=== PATIENT | male | born 1935 | race Caucasian/White ===

== ENCOUNTER 2016-06-25 10:54 | Observation (INO) | payer MEDICARE, BC, OTHER ==
[2016-06-25 11:13] VITALS: BMI 39.5
[2016-06-25] MEDS ORDERED: ALBUTEROL 0.083% 3 ML NEB NEB ONE (11:38)
--- NOTE | 2016-06-25 11:38 | EDPRACDOC ---
[id number] Present Illness Onset: last night HPI: PT WITH B/L KNEE PAIN (CHRONIC), LEG WEAKNESS. STATES UNABLE TO STAND TODAY. SMOKER OF CIGARS SINCE 14 YEARS OLD. LIVES ALONE. FALL LAST NIGHT 2099. ALSO LEFT ELBOW PAIN. <Jose Alejandro Norwood - Last Filed: 06/25/16 15:08> <Stephanie Ambriz Santi - Last Filed: 07/02/16 06:33> - General Information Chief Complaint: Fall Stated Complaint: FALL AT HOME Time Seen by Provider: 06/25/16 11:33 Home Medications: Home Medications No Home Medications 06/25/16 Allergies/Adverse Reactions: Allergies Allergy/AdvReac Type Severity Reaction Status Date / Time No Known Allergies Allergy Unverified 08/18/15 12:17 ED Past Medical History - History Reviewed Yes Nurses notes reviewed and agree except as marked - Patient Medical History Psychological History: Denies: Depression Systemic History: Denies: Cancer Surgical History: Reports: Appendectomy, Tonsillectomy/Adnoidectomy - Social Medical History Smoking Status: Light tobacco smoker (less than 5/day) <Jose Alejandro Norwood - Last Filed: 06/25/16 15:08> EDM Review of Systems - Review of Systems ROS Negative Except as Marked: Yes All systems reviewed and were negative except as marked Constitutional: No Symptoms Reported Eyes: No Symptoms Reported Nose: No Symptoms Reported Mouth: No Symptoms Reported Respiratory: Cough, Shortness of Breath Cardiovascular: No Symptoms Reported Gastrointestinal: No Symptoms Reported Genitourinary: No Symptoms Reported Neurological: No Symptoms Reported Musculoskeletal: Other (B/L KNEE PAIN, LEG WEAKNESS) <Jose Alejandro Norwood - Last Filed: 06/25/16 15:08> - Physical Exam Constitutional: Alert (Awake), No apparent distress Oriented to: Time, Person, Place Last recorded Vital Signs: Last Vital Signs Temp 99.0 F 06/25/16 11:05 Pulse 87 06/25/16 11:05 Resp 18 06/25/16 11:05 BP 149/92 06/25/16 11:05 Pulse Ox 96 06/25/16 11:05 Oxygen Pulse Oxygen Saturation 96 O2 Device Room Air Oxygen Flow Rate Fraction of Inspired Oxygen ( FIO2) - HEENT Head: Normal ( normocephalic) Eye Exam: Normal (PERRL, EOMI, Sclera white) Oropharynx: Normal (Pharynx:Moist without exudate,Gums-no swelling) Nose: No Symptoms Reported (septum midline) Neck: Normal (FROM, trachea at midline) - Respiratory/Cardiovascular Respiratory: Rhonchi (B/L) Cardiovascular: Normal (RRR without murmur, gallop or rub) - GI Auscultation: Normal (NABS) Palpation: Normal (Soft,No rebound or guarding, non distended) Tenderness: Non tender Tavares's Sign: Negative - Musculoskeletal Back: Normal (Non-Tender) Extremities: Normal (Normal tone, Pulses 2+ No cyanosis or edema, FROM) - Integumentary Skin: Normal, Warm, Dry Lymphatics: Normal (no adenopathy) - Neurologic Memory Impaired: Normal Motor Function: Normal (Normal tone, Pulses 2+ No cyanosis or edema, FROM) Cranial Nerve: Normal (CN II-X11 intact sensation, strength 5/5) Cerebellar: Normal Mood Description: Normal Perception: Normal <Jose Alejandro Norwood - Last Filed: 06/25/16 15:08> - Physical Exam Last recorded Vital Signs: Last Vital Signs Temp 99.0 F 06/25/16 11:05 Pulse 85 06/25/16 15:50 Resp 16 06/25/16 15:50 BP 163/85 06/25/16 15:50 Pulse Ox 95 06/25/16 15:50 Oxygen Pulse Oxygen Saturation 95 O2 Device Room Air Oxygen Flow Rate Fraction of Inspired Oxygen ( FIO2) <Stephanie Ambriz - Last Filed: 07/02/16 06:33> - Results 06/25/16 11:10 06/25/16 11:10 - EKG EKG #1 EKG Time: 11:07 -: Yes EKG interpreted by me Rate: bpm: 86 [place]: Normal Rhythm: NSR Block: None Hypertrophy: None ST: Normal Comments: NORMAL EKG <Jose Alejandro Norwood - Last Filed: 06/25/16 15:08> - Re-evaluation Re-evaluation 2 Re-evaluation Time: 19:48 (PT REQUIRED SIGNIFICANT ASSISTANCE TO AMBULATE IN HALLWAYS "MY KNEES ARE GOING TO GIVE OUT". LIVES ALONE, WALKS WITH A WALKER. NEIGHBORS HERE WITH HIM, STATE HOUSE IS FULL OF "STUFF - HOARDER") General: Pleasant MALE No acute distress. Neuro: Alert Oriented, calm and cooperative,MOTOR 5/5 ALL 4 EXT. HEENT: Normocephalic atraumatic. Sclerae nonicteric. Extraocular movements intact. Oral mucosa pink and moist. Neck: Supple. Nontender. Good range of motion. No masses. Trachea is midline. No cervical adenopathy. Lungs: Clear to auscultation. No rhonchi or wheezing. Heart: Regular rate and rhythm. No murmur. Abdomen: Soft, nontender, nondistended. No hepatosplenomegaly. No abdominal wall defects or masses. No guarding or rebound. BACK: LEFT CVA ECCHYMOSIS MILD TO MODERATE TTP. Extremities: no cyanosis clubbing or GEN NONPITTING edema. No palpable deformities. KM KNEES NTTP, LIGAMENTS INTACT. Skin: Warm and dry, no rashes PT APPEARS TO HAVE GEN DECONDITIONING NOW TO THE POINT OF AMBULATORY DYSFUNCTION. HE HAS VERY LITTLE SOCIAL SUPPORT. SIGNIFICANT FALL RISK IN CURRENT CONDITION AND LIVING AT HOME. OBS STAY TO REHAB OFFERED VS OUTPT PT AND HOME HEALTH NURSE DANIELA. - Results 06/27/16 13:50 06/27/16 13:50 WBC 10.6 xk/uL (3.8-10.8) 06/25/16 11:10 RBC 5.31 xM/uL (4.70-6.10) 06/25/16 11:10 Hgb 16.0 g/dL (14.0-18.0) 06/25/16 11:10 Hct 47.4 % (42-52) 06/25/16 11:10 MCV 89 fL (80-94) 06/25/16 11:10 MCH 30.1 pg (27-32) 06/25/16 11:10 MCHC 33.7 g/dl (33-36) 06/25/16 11:10 RDW 13.6 % (11.5-14.5) 06/25/16 11:10 Plt Count 166 xk/uL (130-400) 06/25/16 11:10 MPV 10.1 fL (7.4-10.4) 06/25/16 11:10 Neut % (Auto) 84.2 % (45-76) H 06/25/16 11:10 Lymph % (Auto) 6.2 % (17-44) L 06/25/16 11:10 [place] % (Auto) 8.3 % (3-10) 06/25/16 11:10 Eos % (Auto) 0.7 % (0-5) 06/25/16 11:10 Baso % (Auto) 0.6 % (0-2) 06/25/16 11:10 Absolute Neuts (auto) 8.90 xk/uL (1.7-8.2) H 06/25/16 11:10 Absolute Lymphs (auto) 0.64 xk/uL (0.65-4.75) L 06/25/16 11:10 PT 11.1 SEC (9.2-11.2) 06/25/16 11:10 INR 1.1 06/25/16 11:10 APTT 24.3 SEC (22-35) 06/25/16 11:10 Puncture Site Rra 06/25/16 11:48 pH 7.440 pH UNITS (7.35-7.45) 06/25/16 11:48 pCO2 43.0 mmHg (35-45) 06/25/16 11:48 pO2 72.0 mmHg (80-100) L 06/25/16 11:48 HCO3 29.2 MMOL/L (22-26) H 06/25/16 11:48 Total CO2 30.5 MMOL/L (23-27) H 06/25/16 11:48 Base Excess 4.4 (+/- 2) H 06/25/16 11:48 FiO2 % 21 06/25/16 11:48 Specimen Drawn By Dared 06/25/16 11:48 Sodium 139 mEq/L (137-146) 06/25/16 11:10 Potassium 4.3 mEq/L (3.5-5.1) 06/25/16 11:10 Chloride 102 mEq/L (98-107) 06/25/16 11:10 Carbon Dioxide 28 mMOL/L (22-33) 06/25/16 11:10 Anion Gap 13 mEq/L (8-16) 06/25/16 11:10 BUN 23 MG/DL (9-20) H 06/25/16 11:10 Creatinine 0.60 MG/DL (0.66-1.25) L 06/25/16 11:10 Estimated GFR (MDRD) > 60 mL/min (>=60) 06/25/16 11:10 Glucose 112 MG/DL (70-99) H 06/25/16 11:10 Calculated Osmolality 273 MOs/Kg (270-290) 06/25/16 11:10 Calcium 9.0 MG/DL (8.4-10.2) 06/25/16 11:10 Corrected Calcium 9.1 MG/DL (8.4-10.2) 06/25/16 11:10 Total Bilirubin 1.2 MG/DL (0.2-1.3) 06/25/16 11:10 AST 31 IU/L (17-59) 06/25/16 11:10 ALT 20 IU/L (21-72) L 06/25/16 11:10 Alkaline Phosphatase 62 IU/L (50-160) 06/25/16 11:10 Troponin I 0.03 ng/mL (<.04) 06/25/16 13:41 Mox-K-Ysimcibmawg Pept 702 pg/mL (0-1800) 06/25/16 11:10 Total Protein 7.4 G/DL (6.3-8.2) 06/25/16 11:10 Albumin 3.9 G/DL (3.5-5.0) 06/25/16 11:10 Urine Color Yellow 06/25/16 13:25 Urine Clarity Clear 06/25/16 13:25 Urine pH 6.0 (5.0-8.0) 06/25/16 13:25 Ur Specific [place] 1.025 (1.003-1.035) 06/25/16 13:25 Urine Protein Trace (NEG/TRACE) 06/25/16 13:25 Urine Glucose (UA) Neg (NEGATIVE) 06/25/16 13:25 Urine Ketones 1+ (NEGATIVE) H 06/25/16 13:25 Urine Occult Blood Neg (NEG/TRACE) 06/25/16 13:25 Urine Nitrite Neg (NEGATIVE) 06/25/16 13:25 Urine Bilirubin Neg (NEGATIVE) 06/25/16 13:25 Urine Urobilinogen 0.2 MG/DL (0-1) 06/25/16 13:25 Ur Leukocyte Esterase Neg (NEGATIVE) 06/25/16 13:25 Urine RBC 0-2 (0-2) 06/25/16 13:25 Urine WBC 2-5 (0-2) H 06/25/16 13:25 Ur Epithelial Cells Occ 06/25/16 13:25 Urine Bacteria Few (NEG/FEW) 06/25/16 13:25 Urine Mucus Mod (NEG/OCC) H 06/25/16 13:25 Lab Results 06/25/16 06/25/16 06/25/16 13:41 13:25 11:48 WBC RBC Hgb Hct MCV MCH MCHC RDW Plt Count MPV Neut % (Auto) Lymph % (Auto) [place] % (Auto) Eos % (Auto) Baso % (Auto) Absolute Neuts (auto) Absolute Lymphs (auto) PT INR APTT Puncture Site Rra pH 7.440 pCO2 43.0 pO2 72.0 L HCO3 29.2 H Total CO2 30.5 H Base Excess 4.4 H FiO2 % 21 Specimen Drawn By Dared Sodium Potassium Chloride Carbon Dioxide Anion Gap BUN Creatinine Estimated GFR (MDRD) Glucose Calculated Osmolality Calcium Corrected Calcium Total Bilirubin AST ALT Alkaline Phosphatase Troponin I 0.03 Cqf-W-Yjmyethfpgc Pept Total Protein Albumin Urine Color Yellow Urine Clarity Clear Urine pH 6.0 Ur Specific [place] 1.025 Urine Protein Trace Urine Glucose (UA) Neg Urine Ketones 1+ H Urine Occult Blood Neg Urine Nitrite Neg Urine Bilirubin Neg Urine Urobilinogen 0.2 Ur Leukocyte Esterase Neg Urine RBC 0-2 Urine WBC 2-5 H Ur Epithelial Cells Occ Urine Bacteria Few Urine Mucus Mod H 06/25/16 06/25/16 06/25/16 11:10 11:10 11:10 WBC 10.6 RBC 5.31 Hgb 16.0 Hct 47.4 MCV 89 MCH 30.1 MCHC 33.7 RDW 13.6 Plt Count 166 MPV 10.1 Neut % (Auto) 84.2 H Lymph % (Auto) 6.2 L [place] % (Auto) 8.3 Eos % (Auto) 0.7 Baso % (Auto) 0.6 Absolute Neuts (auto) 8.90 H Absolute Lymphs (auto) 0.64 L PT 11.1 INR 1.1 APTT 24.3 Puncture Site pH pCO2 pO2 HCO3 Total CO2 Base Excess FiO2 % Specimen Drawn By Sodium 139 Potassium 4.3 Chloride 102 Carbon Dioxide 28 Anion Gap 13 BUN 23 H Creatinine 0.60 L Estimated GFR (MDRD) > 60 Glucose 112 H Calculated Osmolality 273 Calcium 9.0 Corrected Calcium 9.1 Total Bilirubin 1.2 AST 31 ALT 20 L Alkaline Phosphatase 62 Troponin I 0.05 Nsm-R-Cgovjxcqxio Pept 702 Total Protein 7.4 Albumin 3.9 Urine Color Urine Clarity Urine pH Ur Specific [place] Urine Protein Urine Glucose (UA) Urine Ketones Urine Occult Blood Urine Nitrite Urine Bilirubin Urine Urobilinogen Ur Leukocyte Esterase Urine RBC Urine WBC Ur Epithelial Cells Urine Bacteria Urine Mucus - Diagnostic Imaging Abdomen Image interpreted by: , Radiologist Patient Name: BREANNA FAJARDO LOC: ED : 1935 AGE: 80 Order Date:06/25/16 Date of Service: Report # [id number] Ord Physician: Jose Alejandro Norwood DO Exam # [id number] Emergency Physician: Stephanie Ambriz MD Exam(s): [id number] CT/CT ABD-PELV W/IV CM CLINICAL DATA: Fall yesterday with left flank pain and ecchymosis, initial encounter EXAM: CT ABDOMEN AND PELVIS WITH CONTRAST TECHNIQUE: Multidetector CT imaging of the abdomen and pelvis was performed using the standard protocol following bolus administration of intravenous contrast. CONTRAST: 100 mL Isovue 370 COMPARISON: None. FINDINGS: Lung bases are free of acute infiltrate or sizable effusion. No pneumothorax is noted. The liver, gallbladder, spleen, adrenal glands and pancreas are within normal limits. 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 The kidneys are well visualized bilaterally and reveal an exophytic cyst inferiorly from the right kidney measuring approximately 4 cm in dimension. The bladder is partially distended. Diffuse diverticular change is noted without evidence of diverticulitis. The appendix is not visualize consistent with a prior surgical history. Aortoiliac calcifications are noted without aneurysmal dilatation. The bony structures show degenerative changes of the lumbar spine. No acute bony abnormality is noted. No gross soft tissue abnormality is noted. IMPRESSION: Chronic changes as described above. No acute abnormality is noted. Electronically Signed By: Iain Jones M.D. On: 06/25/2016 16:16 Electronically Signed By: Iain Jones MD Electronically Signed Date/Time: [id number] Dictate Date/Time: 06/25/16 1607 Technologist: Gumaro Colon Transcribed By: Kash Transcribed Date/Time: 06/25/16 1616 Chest Image interpreted by: Radiologist Patient Name: BREANNA FAJARDO LOC: ED : 1935 AGE: 80 Order Date:06/25/16 Date of Service: Report # [id number] Ord Physician: Jose Alejandro Norwood DO Exam # [id number] Emergency Physician: Jose Alejandro Norwood DO Exam(s): [id number] RAD/DG CHEST 2V CLINICAL DATA: Cough, shortness of breath. EXAM: CHEST 2 VIEW COMPARISON: December 22, 2004. FINDINGS: The heart size and mediastinal contours are within normal limits. Both lungs are clear. No pneumothorax or pleural effusion is noted. The visualized skeletal structures are unremarkable. IMPRESSION: No active cardiopulmonary disease. Electronically Signed By: Moises Madrigal Jr, M.D. On: 06/25/2016 12:14 Electronically Signed By: Moises Madrigal MD Electronically Signed Date/Time: [id number] Dictate Date/Time: 06/25/16 1212 Technologist: Rosa Urbano Transcribed By: Kash Transcribed Date/Time: 06/25/16 1214 <Stephanie Ambriz - Last Filed: 07/02/16 06:33> - Departure Yes I personally saw and evaluated the patient. Disposition: Home <Jose Alejandro Norwood - Last Filed: 06/25/16 15:08> <Stephanie Ambriz - Last Filed: 07/02/16 06:33> - Departure Condition: Stable Final Diagnosis: Accidental fall, Weakness generalized, Ambulatory dysfunction
[2016-06-25 11:50] LABS: AUTOMATED BASOPHIL 0.6 % (0-2); AUTOMATED EOSINOPHIL 0.7 % (0-5); AUTOMATED LYMPH 6.2 % (17-44); AUTOMATED MONOCYTE 8.3 % (3-10); AUTOMATED NEUTROPHIL 84.2 % (45-76); MPV 10.1 fL (7.4-10.4)
[2016-06-25 11:51] LABS: ALLEN'S TEST PASS; BEb 4.4 (+/- 2)
[2016-06-25 11:52] LABS: ABG Draw Site RRA; TCO2 30.5 MMOL/L (23-27)
[2016-06-25 12:04] LABS: PARTIAL THROMB. TIME 24.3 SEC (22-35); PT-INR 1.1
--- NOTE | 2016-06-25 12:17 | DIRPT ---
CLINICAL DATA: Cough, shortness of breath. EXAM: CHEST 2 VIEW COMPARISON: December 22, 2004. FINDINGS: The heart size and mediastinal contours are within normal limits. Both lungs are clear. No pneumothorax or pleural effusion is noted. The visualized skeletal structures are unremarkable. IMPRESSION: No active cardiopulmonary disease. Electronically Signed By: Moises Madrigal Jr, M.D. On: 06/25/2016 12:14
[2016-06-25 12:20] LABS: BLOOD UREA NITROGEN 23 MG/DL (9-20); CALC CORRECTED 9.1 MG/DL (8.4-10.2); CALCULATED OSMOLALITY 273 MOs/Kg (270-290); CHLORIDE 102 mEq/L (98-107); GLUCOSE 112 MG/DL (70-99); SODIUM LEVEL 139 mEq/L (137-146); TOTAL PROTEIN 7.4 G/DL (6.3-8.2)
[2016-06-25 13:54] LABS: RBC/URINE 0-2 (0-2)
[2016-06-25 13:55] LABS: LEUKOCYTES/URINE NEG (NEGATIVE); NITRITE/URINE NEG (NEGATIVE); URINE OCCULT BLOOD NEG (NEG/TRACE)
[2016-06-25] MEDS: TRAMADOL HCL 50 MG TAB PO ONE ×2 (14:55→21:01)
[2016-06-25] MEDS ORDERED: Pharmacy Review for Metformin - IV Contrast Given SCH (16:00)
--- NOTE | 2016-06-25 16:17 | DIRPT ---
CLINICAL DATA: Fall 1 day prior with lower extremity weakness EXAM: CT HEAD WITHOUT CONTRAST TECHNIQUE: Contiguous axial images were obtained from the base of the skull through the vertex without intravenous contrast. COMPARISON: Brain MRI August 20, 2015; head CT August 07, 2015 FINDINGS: Moderate diffuse atrophy is stable. There is no intracranial mass, hemorrhage, extra-axial fluid collection, or midline shift. There is moderate small vessel disease throughout the centra [place] bilaterally, stable. There is evidence of a prior infarct at the right enrique -midbrain junction. No acute infarct is evident on this study. The bony calvarium appears intact. The mastoid air cells are clear. No intraorbital lesions are identified. There is calcification in the distal vertebral arteries and clinoid carotid regions bilaterally. 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 No intracranial mass, hemorrhage, or acute appearing infarct. Electronically Signed By: Jaxson Dover III, M.D. On: 06/25/2016 16:14
--- NOTE | 2016-06-25 16:19 | DIRPT ---
CLINICAL DATA: Fall yesterday with left flank pain and ecchymosis, initial encounter EXAM: CT ABDOMEN AND PELVIS WITH CONTRAST TECHNIQUE: Multidetector CT imaging of the abdomen and pelvis was performed using the standard protocol following bolus administration of intravenous contrast. CONTRAST: 100 mL Isovue 370 COMPARISON: None. FINDINGS: Lung bases are free of acute infiltrate or sizable effusion. No pneumothorax is noted. The liver, gallbladder, spleen, adrenal glands and pancreas are within normal limits. 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 The kidneys are well visualized bilaterally and reveal an exophytic cyst inferiorly from the right kidney measuring approximately 4 cm in dimension. The bladder is partially distended. Diffuse diverticular change is noted without evidence of diverticulitis. The appendix is not visualize consistent with a prior surgical history. Aortoiliac calcifications are noted without aneurysmal dilatation. The bony structures show degenerative changes of the lumbar spine. No acute bony abnormality is noted. No gross soft tissue abnormality is noted. IMPRESSION: Chronic changes as described above. No acute abnormality is noted. Electronically Signed By: Iain Jones M.D. On: 06/25/2016 16:16
[2016-06-25] MEDS ORDERED: ACETAMINOPHEN 325 MG/TAB TABLET PO PRN (20:16)
[2016-06-26] MEDS: ASPIRIN (CHEWABLE) 81 MG TAB PO SCH (08:21)
[2016-06-26] MEDS ORDERED: TUSSIONEX 5 ML ORAL SYRINGE PO ONE (13:01)
[2016-06-27] MEDS: ASPIRIN (CHEWABLE) 81 MG TAB PO SCH (08:28)
[2016-06-27] MEDS ORDERED: [UNRECOGNIZED DRUG - OTHER] PO ONE (11:34)
--- NOTE | 2016-06-27 13:57 | DIRPT ---
CLINICAL DATA: Constipation EXAM: ABDOMEN - 1 VIEW COMPARISON: 06/25/2016 FINDINGS: There is normal small bowel gas pattern. Moderate stool noted in right colon and proximal transverse colon. Some colonic gas noted in transverse colon. Mild colonic stool distal left colon. Moderate stool in distal sigmoid colon and rectum. The rectum measures 4.4 cm in diameter. Degenerative changes lumbar spine. IMPRESSION: Normal small bowel gas pattern. Colonic stool as described above. Electronically Signed By: Lamin Powell M.D. On: 06/27/2016 13:55
[2016-06-27 14:01] LABS: AUTOMATED BASOPHIL 0.8 % (0-2); AUTOMATED EOSINOPHIL 1.9 % (0-5); AUTOMATED LYMPH 9.8 % (17-44); AUTOMATED MONOCYTE 9.9 % (3-10); AUTOMATED NEUTROPHIL 77.6 % (45-76); MPV 9.6 fL (7.4-10.4)
[2016-06-27 14:07] LABS: BLOOD UREA NITROGEN 19 MG/DL (9-20); CALCIUM 8.9 MG/DL (8.4-10.2); CALCULATED OSMOLALITY 271 MOs/Kg (270-290); CHLORIDE 100 mEq/L (98-107); GLUCOSE 146 MG/DL (70-99); SODIUM LEVEL 138 mEq/L (137-146)
[2016-06-28] MEDS: ASPIRIN (CHEWABLE) 81 MG TAB PO SCH (08:25)
--- NOTE | 2016-06-28 08:35 | EDTUNOTE ---
- SOAP Note SOAP Note: 06/28/16 0830 Day 2 S: 80 y.o. M presented to ED for generalized weakness and ambulatory dysfunction. Pt lives at home alone and limited support. Pt denies c/o this morning. O: No changes in clinical status or new information from previous documentation. Vital Signs: Temp:98.1 F HR: 77 BP: 177/97 RR: 20 Pox: 96%. Continue with current plan. CTA RRR A: Ambulatory dysfunction Generalized weakness P: Continue meds as directed for further stabilization. Social work consult to assist in rehab placement or home health care.
--- NOTE | 2016-06-28 11:03 | TUDEPART ---
Disposition: [facility] Facility ([facility]) Condition: Stable Instructions: RICE: Routine Care for Injuries Education/Counseling Given To: Patient Education/Counseling Given Regarding: Diagnosis, Treatment, Follow Up Follow-up / Referrals: None,No Provider [NonStaff] - One Week - Physical Exam Constitutional: Alert (Awake), No apparent distress Oriented to: Time, Person, Place Last recorded Vital Signs: Last Vital Signs Temp 98.1 F 06/28/16 07:19 Pulse 77 06/28/16 07:19 Resp 20 06/28/16 07:19 BP 177/97 06/28/16 07:19 Pulse Ox 96 06/28/16 07:19 Oxygen Pulse Oxygen Saturation 96 O2 Device Room Air Oxygen Flow Rate Fraction of Inspired Oxygen ( FIO2) - HEENT Head: Normal ( normocephalic) Eye Exam: Normal (PERRL, EOMI, Sclera white) Oropharynx: Normal (Pharynx:Moist without exudate,Gums-no swelling) Nose: No Symptoms Reported (septum midline) - Respiratory/Cardiovascular Respiratory: Rhonchi (B/L) Cardiovascular: Normal (RRR without murmur, gallop or rub) - GI Auscultation: Normal (NABS) Palpation: Normal (Soft,No rebound or guarding, non distended) Tenderness: Non tender Tavares's Sign: Negative - Musculoskeletal Back: Normal (Non-Tender) Extremities: Normal (Normal tone, Pulses 2+ No cyanosis or edema, FROM) - Integumentary Skin: Normal, Warm, Dry Lymphatics: Normal (no adenopathy) - Neurologic Memory Impaired: Normal Motor Function: Normal (Normal tone, Pulses 2+ No cyanosis or edema, FROM) Cranial Nerve: Normal (CN II-X11 intact sensation, strength 5/5) Cerebellar: Normal Mood Description: Normal Perception: Normal
[2016-06-28 11:59] VITALS: BP 169/93; PULSE 84; TEMP 98
== END 2016-06-28 12:45 ==
LOC: ED 10:54 → TUOBSINP 20:14 → EDINP 06-26 07:52 → TUOBSINP 06-27 01:14 → EDINP 06-27 08:28 → TUOBSINP 06-28 07:03
PROVIDERS: ADMIT Emergency Medicine; ATTEND Emergency Medicine
DX: R53.1 Weakness (principal); R26.9 Unspecified abnormalities of gait and mobility; Z91.81 History of falling; M25.562 Pain in left knee; M25.561 Pain in right knee; F17.290 Nicotine dependence, other tobacco product, uncomplicated; G89.29 Other chronic pain; M25.522 Pain in left elbow; Z74.2 Need for assistance at home and no other household member able to render care
CPT/HCPCS: 36415; 36600; 70450; 71020; 74000; 74177; 80048; 80053; 81001; 82803; 83880; 84443; 84484; 85025; 85610; 85730; 93005; 94640; 97116; 97162; 99285; A9270; A9698; G0378; G8978; G8979; J3490